=== PATIENT | male | born 1990 | race Caucasian/White ===

== ENCOUNTER 2016-08-08 16:02 | Inpatient (IN) | payer OTHER ==
--- NOTE | ~2016-08-08 | DS ---
Unit #: [id number] #: [id number] Patient: SERGIO STRINGER [id number] [facility] [address] [place] [address] [id number] MR#: [id number] NAME: SERGIO STRINGER. ROOM: 83 Age: 26 Sex: M Admission Date: 08/08/2016 : 1990 Discharge Date: 08/14/2016 Attending Physician: Marco Cobb M.D. Primary Care Physician: Primary Care Physician No DISCHARGE SUMMARY REASON FOR ADMISSION The patient is a 26-year-old single white male admitted to the [address] [place] [address] for opioid detox. HOSPITAL COURSE The patient was admitted to the [address] [place] [address] and placed on routine detoxification protocol for opioids. His detox was a fairly arduous one lasting about 5 days. By 08/13, the patient was agreeable for plan for discharge to take place the following morning. He requested discharge to take place in that fashion secondary to his need to present for a 12-day stint in longterm. Discharge was ordered. DISCHARGE DIAGNOSES Opioid use disorder. FOLLOWUP CARE Followup to take place through the auspices of community mental health and chemical dependence treatment resources. DISCHARGE MEDICATIONS No psychotropic or other medications ordered at time of discharge. PROGNOSIS Considered fair. Dictated by... Marco Cobb M.D. CB/ayaz TD: 08/13/2016 14:57 JOB #: [id number] Unit #: [id number] #: [id number] Patient: SERGIO STRINGER DISCHARGE SUMMARY Page 1 of 1 X Marco Cobb MD X DISCHARGE SUMMARY
--- NOTE | ~2016-08-08 | A ---
[facility] Nutrition Therapy DATE: 08/10/16 Patient: SERGIO STRINGER Physician: TOM Address: [address] Room/Bed: [address], Zip: [place] [address] Admit Date: 08/08/16 Date of : [birth year] Height: 5 10 Weight: 149 68.0388 NUTRITIONAL ASSESSMENT: REASON: 1 point malnutrition risk score re: unintentional weight loss Admitting Dx: 26 y/o male admitted for IV heroin detox PMH: Opioid abuse, Hep C, 1 ppd smoker Anthropometrics: Ht: 70", Wt: 150 lbs, BMI: 21 (normal), 90% IBW Labs: WNL Meds: Milk of Mg, Loperamide, Mag-al, MVI, Thiamine, Folic acid, Phenergan/Zofran Assessment: Chart reviewed, events noted. Patient undergoing IV heroin detox. 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 Patient reports low energy and poor appetite upon admission with a 25 lb weight loss in the past 2 months, however past weight of 165 lbs on 09/10/15 reflects a 15 lb weight loss in almost 1 year. Patient has normal BMI, is 90% of IBW. He is on a regular diet. Suspect PO intake will improve after detox. See recs below. Dx: Unintententional weight loss r/t low energy, drug abuse AEB 1 point malnutrition risk score. Intervention: Ensure BID if PO < 50%, weights q 3 days Monitoring, Evaluation and Goals: 1. PO intake 50-100% of meals. 2. Prevent further unintentional weight loss. Monitor: Per protocol, criteria to determine if above goals met Recommendations: 1. Continue regular diet, appreciate staff to encourage adequate oral intake. 2. If PO intake is consistently < 50% of meals please order Ensure Plus BID (available in vanilla/chocolate, requires MD order). 3. Please weigh q 3 days for monitoring purposes noting weight loss and notify RD if weight is trending down. [facility] Nutrition Therapy DATE: 08/10/16 Patient: SERGIO STRINGER Physician: TOM Address: [address] Room/Bed: [address], Zip: [place] [address] Admit Date: 08/08/16 Date of : [birth year] Height: 5 10 Weight: 149 68.0388 4. Please consult with any further nutritional needs. Mild nutrition risk Respectfully, Joanne Bird RD, LD [facility] cc: client file
--- NOTE | ~2016-08-08 | PN ---
Unit #: [id number] #: [id number] Patient: SERGIO STRINGER [id number] [facility] [address] [place] [address] [id number] I MR#: [id number] NAME: SERGIO STRINGER. ROOM: [facility] Age: 26 Sex: M Admission Date: 08/08/2016 : 1990 Attending Physician: Marco Cobb M.D. Admitting Physician: Marco Cobb M.D. Primary Care Physician: Primary Care Physician Merced ROSAS PROGRESS NOTES DATE 08/11/2016 DISCUSSION The patient is abed today complaining of insomnia. I will add trazodone 50 mg at h.s. p.r.n. insomnia. The patient continues to report symptoms of severe heroin withdrawal and appears to be in significant physical distress. Dictated by... Macro Cobb M.D. CB/ayaz TD: 08/11/2016 16:10 JOB #: [id number] [facility] PROGRESS NOTES Page 1 of 1 X Marco Cobb MD PROGRESS NOTE
--- NOTE | ~2016-08-08 | PN ---
Unit #: [id number] #: [id number] Patient: SERGIO STRINGER [id number] [facility] [address] [place] [address] [id number] MR#: [id number] NAME: SERGIO STRINGER. ROOM: [facility] Age: 26 Sex: M Admission Date: 08/08/2016 : 1990 Attending Physician: Marco Cobb M.D. Admitting Physician: Marco Cobb M.D. Primary Care Physician: Primary Care Physician Merced ROSAS PROGRESS NOTES DATE 08/10/2016 DISCUSSION The patient continues to exhibit significant symptoms of opiate withdrawal and complains of significant distress related thereto. I have encouraged him to avail himself of available p.r.n.'s and to begin participation programming when able to do so. Dictated by... Marco Cobb M.D. CB/ayaz TD: 08/10/2016 15:23 JOB #: [id number] [facility] PROGRESS NOTES Page 1 of 1 X Marco Cobb MD PROGRESS NOTE
--- NOTE | ~2016-08-08 | PN ---
Unit #: [id number] #: [id number] Patient: SERGIO STRINGER [id number] [facility] [address] [place] [address] [id number] MR#: [id number] NAME: SERGIO STRINGER. ROOM: 83 Age: 26 Sex: M Admission Date: 08/08/2016 : 1990 Attending Physician: Marco Cobb M.D. Admitting Physician: Marco Cobb M.D. Primary Care Physician: Primary Care Physician Merced ROSAS PROGRESS NOTES DATE 08/12/2016 DISCUSSION The patient is in brighter spirits today. He continues to complain of poor sleep but his detox symptoms have resolved. He states that he will be ready for discharge most likely "in the next couple of days." Dictated by... Marco Cobb M.D. CB/laith TD: 08/13/2016 04:57 JOB #: [id number] [facility] PROGRESS NOTES Page 1 of 1 X Marco Cobb MD PROGRESS NOTE
--- NOTE | ~2016-08-08 | HP ---
Unit #: [id number] #: [id number] Patient: JOSE MARIA STRINGER [id number] [place] [address] [id number] I MR#: [id number] NAME: JOSE MARIA STRINGER. ROOM: 83 Age: 26 Sex: M Admission Date: 08/08/2016 : 1990 Attending Physician: Marco Cobb M.D. Admitting Physician: Marco Cobb M.D. Primary Care Physician: Primary Care Physician No HISTORY AND PHYSICAL HISTORY OF PRESENT ILLNESS Jose Maria is a 26 year old admitted to [facility] because of his drug use. He shoots heroin. PAST MEDICAL HISTORY 1. Long history of opioid abuse to include IV heroin. 2. Hepatitis C. PAST SURGICAL HISTORY Nothing reported. ALLERGIES No known drug allergies. SOCIAL HISTORY Smokes one pack per day. Denies alcohol. Admits to long history of opioid abuse to include IV heroin. FAMILY HISTORY Medically noncontributory. REVIEW OF SYSTEMS CONSTITUTIONAL: No fever or chills. HEENT: Denies any sore throat, ear pain or runny nose. CARDIOVASCULAR: Denies chest pain, irregular heart rhythm or palpitations. CHEST: Denies shortness of breath or cough. No hemoptysis. GASTROINTESTINAL: Denies nausea, vomiting, diarrhea or chronic constipation. ENDOCRINE: Denies history of increased thirst or urination. No recent significant weight loss or gain. GENITOURINARY: Denies dysuria, frequency, or hematuria. SKIN: Denies any rashes. HEMATOLOGIC: Denies history of increased bleeding or bruising. MUSCULOSKELETAL: Denies any hot, swollen joints. No generalized muscle pain. NEUROLOGIC: Denies problems with vision or speech. No frequent, severe headaches. No numbness, tingling or weakness in any extremities. Denies loss of bladder or bowel control. CURRENT MEDICATIONS Detox protocol. PHYSICAL EXAMINATION Unit #: [id number] #: [id number] Patient: JOSE MARIA STRINGER GENERAL: Alert, well nourished. No apparent distress. VITAL SIGNS: Blood pressure 122/64, heart rate 80, respirations 16, and temperature 98.6. WEIGHT: 150. HEIGHT: 5 feet 10 inches. SKIN: Warm and dry without rash or lesion. HEENT: Normocephalic. TMs not viewed. Oral and nasal passages clear. Conjunctivae clear. PERRLA. EOMs intact. NECK: Supple without lymphadenopathy or thyromegaly. HEART: Regular rate and rhythm without murmur. LUNGS: Clear. ABDOMEN: Soft, nontender. : Not done. EXTREMITIES: No evidence of cyanosis, clubbing or edema. Moves all without focal deficit. NEUROLOGICAL: Grossly within normal limits. Cranial Nerves: II: Visual jones are intact. III, IV AND : Extraocular movements are intact. Pupils are equal, round and reactive to light. V: Facial sensation is grossly normal. VII: Facial movements and expression are normal. VIII: Auditory acuity grossly intact. IX, X: Uvula is midline. Phonation is normal. XI: Patient shrugs shoulders and turns head normally. XII: Tongue protrudes in the midline. Sensory and Motor Function: Sensory and motor sensation is grossly normal. Motor: moves all extremities well. Coordination: Gait is normal. Deep Tendon Reflexes: Intact. IMPRESSION Psychiatric admission. RECOMMENDATIONS PSYCHIATRIC: Per psychiatrist. MEDICAL: I see no contraindications to participate in this facility's activities. MEDICAL PROGNOSIS Good. MEDICAL CONDITION Stable. Dictated by... Cristina Collins P.A.-C. for Naren Ly/benita TD: 08/09/2016 11:14 JOB #: [id number] Unit #: [id number] #: [id number] Patient: JOSE MARIA STRINGER HISTORY AND PHYSICAL Page 1 of 1 X Cristina Collins HISTORY AND PHYSICAL
--- NOTE | ~2016-08-08 | PA ---
Unit #: [id number] #: [id number] Patient: SERGIO STRINGER [id number] [place] [address] [id number] MR#: [id number] NAME: SERGIO STRINGER. ROOM: P183 Age: 26 Sex: M Admission Date: 08/08/2016 : 1990 Date of Assessment: 08/09/2016 Attending Physician: Marco Cobb M.D. Admitting Physician: Marco Cobb M.D. Primary Care Physician: Primary Care Physician No PSYCHIATRIC ASSESSMENT IDENTIFYING INFORMATION The patient is a 26-year-old white male admitted to the [address] [place] [address] with a history of methamphetamine and opioid dependence. INFORMANT(S) Patient. RELIABILITY Good. CHIEF COMPLAINT None given. HISTORY OF PRESENT ILLNESS The patient is a 26-year-old white male admitted to the hospital with a history of opioid and methamphetamine abuse. Patient admits to intravenous abuse of both substances. He was last admitted to this facility in August of 2015 and since that time had gone to [facility]. He had completed that program and sustained sobriety for 5-1/2 months but has since relapsed. The patient reports that he is "tired of living like this" though he denies any suicidal or homicidal ideation. The patient lives with his mother. 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 For a more complete history of present illness, please refer to previous dictated notes. PAST PSYCHIATRIC HISTORY Reviewed, no changes. FAMILY HISTORY Noncontributory. SOCIAL HISTORY The patient lives with his mother. He is not presently employed. MEDICAL HISTORY Reviewed, no changes. MEDICATION HISTORY None. ALLERGIES None. Unit #: [id number] #: [id number] Patient: SERGIO STRINGER MENTAL STATUS EXAM At this time reveals the patient to be well-developed, well-nourished white male appearing stated age. He is in significant physical distress related to opiate withdrawal. During interview, he is awake, alert in all spheres. His mood is dysphoric. His affect constricted. Speech is generally relevant and coherent. There are no gross deficits in memory or cognition noted. Intelligence is judged to be in the average range based on fund of knowledge. The patient is cooperative throughout the interview. He is currently reporting no suicidal or homicidal ideation and denies any psychotic symptoms. His judgement and insight appear to be reasonably intact. ASSETS AND LIABILITIES Patient's assets, motivation for change. Liabilities, lack of resources. ADMITTING DIAGNOSES 1. Opioid use disorder. 2. Methamphetamine use disorder. PSYCHIATRIC PLAN/TREATMENT GOALS The patient remains hospitalized for safety and stabilization. Routine detoxification protocol for opioids has been initiated. The patient will participate in appropriate chandler and milieu activities. DISCHARGE PLANNING Follow up to take place through the auspices of community mental health resources. ESTIMATED LENGTH OF STAY Five to seven days. Dictated by... Marco Cobb M.D. MARIE/ayaz TD: 08/09/2016 15:04 JOB #: [id number] PSYCHIATRIC ASSESSMENT Page 1 of 1 X Marco Cobb MD X PSYCHIATRIC ASSESSMENT
[2016-08-09 10:09] LABS: BASOPHIL% 0.5 % (0-2.5); EOSINOPHIL# 0.1 X10e3 (0-0.7); EOSINOPHIL% 1.4 % (0.0-7.0); HEMATOCRIT 40.5 % (38.0-50.0); HEMOGLOBIN 13.5 gm/dL (13.0-16.0); LYMPHOCYTE# 2.8 X10e3 (1.0-3.5); LYMPHOCYTE% 33.6 % (17.0-45.0); MEAN CELL VOLUME 85.1 FL (83-96); MEAN CORPUSCULAR HEMOGLOBIN 28.3 PG (28-34); MEAN CORPUSCULAR HGB CONC 33.2 g/dL (30-36); MEAN PLATELET VOLUME 9.9 FL (6.5-11.5); MONOCYTE# 0.5 X10e3 (0-1.0); MONOCYTE% 6.5 % (3.0-12.0); NEUTROPHIL# 4.9 X10e3 (1.5-7.1); PLATELET COUNT 208 X10e3 (140-420); RED BLOOD COUNT 4.76 X10e (3.90-5.60); RED CELL DISTRIBUTION WIDTH 12.8 % (11.0-15.5); WHITE BLOOD COUNT 8.4 X10e3 (4.0-10.5)
[2016-08-09 10:11] LABS: ALBUMIN SERUM 4.2 g/dL (3.5-5.0); BILIRUBIN,TOTAL 0.4 mg/dL (0.2-2.0); BUN/CREATININE RATIO 12.5; CALCIUM SERUM 9.4 mg/dL (8.4-10.2); CREATININE SERUM 0.8 mg/dL (0.6-1.4); GLOM FILT RATE Estimated 125.1 mL/min (>60); POTASSIUM 4.2 mmol/L (3.5-5.1); PROTEIN TOTAL SERUM 7.1 g/dL (6.0-8.3)
[2016-08-09 10:14] LABS: DIFF IND NO
[2016-08-10 10:00] LABS: URINE APPEARANCE CLEAR; URINE BILIRUBIN NEG (NEG); URINE BLOOD NEG (NEG); URINE COLOR YELLOW; URINE GLUCOSE NEG (NEG); URINE KETONE NEG (NEG); URINE LEUKOCYTE ESTERASE NEG (NEG); URINE NITRATE NEG (NEG); URINE PROTEIN NEG (NEG); URINE SPECIFIC GRAVITY 1.018 (1.003-1.035)
[2016-08-10 10:29] LABS: AMPHETAMINE POS (NEG); BARBITURATES NEG (NEG); BENZODIAZEPINES NEG (NEG); COCAINE NEG (NEG); MARIJUANA NEG (NEG); OPIATES POS (NEG); TRICYCLIC ANTIDEPRESSANTS NEG (NEG); U METHADONE NEG (NEG)
[2016-08-15 12:53] LABS: HA AB IGM (HEPPAN) Nonreactive (()); HB CORE AB IGM (HEPPAN) Nonreactive (Nonreactive); HB S AG (HEPPAN) Nonreactive (Nonreactive); HEP C AB (HEPPAN) Reactive (Nonreactive)
== END 2016-08-14 08:00 | disposition home or self-care (01) | DRG 897 ==
LOC: P1E 16:02
PROVIDERS: Specialist
PROC: HZ2ZZZZ Detoxification Services for Substance Abuse Treatment (ICD-10-PCS; principal; 2016-08-08)
DX: F11.20 Opioid dependence, uncomplicated (principal); F15.20 Other stimulant dependence, uncomplicated; B19.20 Unspecified viral hepatitis C without hepatic coma; F17.210 Nicotine dependence, cigarettes, uncomplicated
CPT/HCPCS: 80053; 80074; 80307; 81003; 85025; 86592; 87522; 87806